=== PATIENT | female | born 1985 | race Asian ===

== ENCOUNTER 2017-05-02 07:41 | Inpatient (IN) | payer OTHER ==
[2017-05-02] VITALS (8 sets, daily range): BP systolic 103–122; BP diastolic 56–72
[~2017-05-02] VITALS: Ht 165.1 cm; Wt 92.5 kg
[~2017-05-02 07:41] MED LIST: Flagyl PO; Motrin PO; Percocet 5/325,Endoc PO; Vibramycin, Doryx PO; Zofran PO
[2017-05-03 02:23] VITALS: BP 98/52
[2017-05-03 07:08] VITALS: BP 101/53
[2017-05-03 08:14] LABS: EOSINOPHIL (%) 0.5 % (0-5); EOSINOPHIL COUNT 0.1 K/uL (0-0.3); IMMATURE GRANULOCYTE (%) 1.5 % (0.0-0.7); IMMATURE GRANULOCYTE COUNT 0.2 K/uL; INSTRUMENT ABS NEUTROPHIL CT 8.5 K/uL; LYMPHOCYTE COUNT 1.6 K/uL (1.0-2.8); MCHC 32.2 G/DL (30.0-36.0); MEAN PLAT.VOLUME 9.3 uM^3 (9.5-12.4); MONOCYTE (%) 7.9 % (3-12); MONOCYTE COUNT 0.9 K/uL (0-0.8); NEUTROPHIL (%) 75.4 % (45-76); NEUTROPHIL COUNT 8.5 K/uL (1.8-6.4); PLATELET COUNT 238 K/uL (156-360); RBC DIS.WIDTH-CV 13.1 % (11.8-14.6); RBC DIS.WIDTH-SD 41.2 % (39-53); RED BLOOD COUNT 3.68 M/uL (3.80-5.20); WHITE BLOOD COUNT 11.2 K/uL (4.1-10.2)
[2017-05-03 15:23] VITALS: BP 102/55
[2017-05-03 20:10] VITALS: BP 110/59
[2017-05-03 23:18] VITALS: BP 114/72
[2017-05-04 03:09] VITALS: BP 115/69
[2017-05-04 08:12] VITALS: BP 106/57
[2017-05-04] MEDS ORDERED: ENDOCET 5-3251 EACH PO (10:35)
[2017-05-04] MEDS ORDERED: IBUPROFEN800 MG PO (10:35)
== END 2017-05-04 14:45 | disposition home or self-care (01) | DRG 766 ==
LOC: 2SOUTH → 2WEST 07:41 → 2SOUTH 08:25 → 2WEST 05-04 14:45
PROVIDERS: Obstetrics & Gynecology Gynecology
PROC: 10D00Z1 Extraction of Products of Conception, Low, Open Approach (ICD-10-PCS; principal; 2017-05-02)
DX: O34.211 Maternal care for low transverse scar from previous cesarean delivery (principal); Z37.0 Single live birth; Z3A.39 39 weeks gestation of pregnancy
CPT/HCPCS: 36415; 85025; 86850; 86900; 86901; J0690; J1100; J2274; J2405; J2590; J2765; J7120

== ENCOUNTER 2018-03-20 05:37 | Day surgery (SDC) | payer OTHER ==
[~2018-03-20] VITALS: Ht 165.1 cm; Wt 82.0 kg
[~2018-03-20 05:37] MED LIST changes: +ENDOCET 5-3251 EACH PO; +IBUPROFEN800 MG PO
[2018-03-20 06:11] VITALS: BP 118/78
[2018-03-20 06:12] LABS: BASOPHIL (%) 0.3 % (0-1); EOSINOPHIL (%) 3.2 % (0-5); EOSINOPHIL COUNT 0.3 K/uL (0-0.3); HEMATOCRIT 42.6 % (36.0-46.0); HEMOGLOBIN 14.2 G/DL (11.9-15.5); IMMATURE GRANULOCYTE (%) 0.3 % (0.0-0.7); LYMPHOCYTE (%) 20.2 % (15-42); LYMPHOCYTE COUNT 1.8 K/uL (1.0-2.8); MCH 28.8 PG (29.0-34.0); MCHC 33.3 G/DL (30.0-36.0); MCV 86.4 FL (83-99); MONOCYTE (%) 5.3 % (3-12); MONOCYTE COUNT 0.5 K/uL (0-0.8); NEUTROPHIL (%) 70.7 % (45-76); NEUTROPHIL COUNT 6.5 K/uL (1.8-6.4); PLATELET COUNT 288 K/uL (156-360); RBC DIS.WIDTH-CV 11.9 % (11.8-14.6); RBC DIS.WIDTH-SD 37.7 % (39-53); RED BLOOD COUNT 4.93 M/uL (3.80-5.20); WHITE BLOOD COUNT 9.1 K/uL (4.1-10.2)
[2018-03-20] MEDS ORDERED: IBUPROFEN800 MG PO (07:23)
[2018-03-20] MEDS ORDERED: ENDOCET 5-3251 EACH PO (07:23)
[2018-03-20 09:25] VITALS: BP 131/75
[2018-03-20 10:27] VITALS: BP 134/79
== END 2018-03-20 10:33 | disposition home or self-care (01) ==
LOC: SDC 05:37
PROVIDERS: Obstetrics & Gynecology Gynecology
DX: Z30.2 Encounter for sterilization (principal); Z97.5 Presence of (intrauterine) contraceptive device; K21.9 Gastro-esophageal reflux disease without esophagitis
CPT/HCPCS: 84702; 85025; 86850; 86900; 86901; 88302; J0131; J0690; J1100; J2250; J2405; J3010; J7120; Q0175